=== PATIENT | female | born 1960 | race Two or more races ===

== ENCOUNTER 2024-03-14 13:04 | Outpatient (AMB) | payer OTHER, SELFPAY ==
--- NOTE | 2024-03-14 13:16 | MHC.OFFVIS ---
Vital Signs 03/14/24 13:17 Height 5 ft 3.5 in Weight 145 lb BMI 25.3 Intake Visit Reasons: DATA WAREHOUSE CONSULTANT- Right Chronic trochanteric bursitis Intake Note: eRnetta is a 63 year old female who presents today with her sister as a new patient with complaints of right hip pain. Patient reports that she has had ongoing right hip pain for about 3-4 months now. Denies injury. Her pain is felt on right sided lower back, along the lateral aspect of the hip and radiates down the leg to the foot. Her pain is felt every day. She takes Tramadol, which does help mildly with her pain. Art Psychotherapist Or Therapist Services: Art Psychotherapist Or Therapist Offered & Declined Allergies No Known Allergies Allergy (Verified 03/14/24 13:20) HPI HPI DATA WAREHOUSE CONSULTANT- Right Chronic trochanteric bursitis: Details: Renetta is a 63 year old female who presents today with her sister as a new patient with complaints of right hip pain. Patient reports that she has had ongoing right hip pain for about 3-4 months now. Denies injury. Her pain is felt on right sided lower back, along the lateral aspect of the hip and radiates down the leg to the foot. Her pain is felt every day. She takes Tramadol, which does help mildly with her pain. Physical Exam Vital Signs: BMI result Body Mass Index 25.3 Extrem Other: No groin pain with hip range of motion. Assessment & Plan Assessment & Plan (1) Low back pain potentially associated with radiculopathy: Code(s): M54.50 - Low back pain, unspecified Category: Medical Plan: This is a 63-year-old woman who is here today with her family member for translation purposes. She was sent here for hip pain but her pain is coming from her low back and not involving her hip. She has no hip symptoms and her exam is normal. Her symptoms are related to her back and potentially radicular pain. I have referred her to pain management. I discussed this with the patient and her family member. They expressed understanding. Orders: Referrals Pain Management Referral M54.50 - Low back pain, unspecified Coding Level of Care Code New Pt Level 3 (34616) Diagnoses Low back pain potentially associated with radiculopathy M54.50
[2024-03-14 13:17] VITALS: BMI 25.3
== END 2024-03-14 14:42 | disposition home or self-care (01) ==
PROVIDERS: Visit Provider Orthopaedic Surgery
DX: M54.50 Low back pain, unspecified (principal)
CPT/HCPCS: 99203

== ENCOUNTER → 2024-03-14 13:04 | Outpatient (BNVA) | payer OTHER, SELFPAY | PROVIDERS: Visit Provider Orthopaedic Surgery | DX: M54.50 Low back pain, unspecified (principal) | CPT/HCPCS: 99202 ==

== ENCOUNTER 2024-04-02 13:28 | Outpatient (REF) | payer OTHER, SELFPAY | END 2024-04-02 13:29 | disposition home or self-care (01) | LOC: HO.XRAY 13:28 | PROVIDERS: PCP Internal Medicine; Visit Provider Nurse Practitioner Family | DX: M53.3 Sacrococcygeal disorders, not elsewhere classified (principal); M47.817 Spondylosis without myelopathy or radiculopathy, lumbosacral region; M70.61 Trochanteric bursitis, right hip | CPT/HCPCS: 72110; 72202; 99202 ==

== ENCOUNTER 2024-04-02 13:28 | Outpatient (AMB) | payer OTHER, SELFPAY ==
--- NOTE | 2024-04-02 13:31 | A.OFFVIS_ITS ---
Vital Signs 04/02/24 13:35 Height 5 ft 3.5 in Weight 142 lb BMI 24.8 BP 129/60 Blood Pressure Location Lt brachial Position Sitting Pulse 78 Pulse Source Pulse Oximeter Pulse Oximetry (%) 98 Oxygen Delivery Method Room Air Intake Visit Reasons: Low back pain Intake Note: Pain today 12/19 Risk Control Manager Required: Yes Risk Control Manager Language: Turkmen Risk Control Manager Services: Risk Control Manager Offered & Declined Risk Control Manager Name: Son per patient's request Accompanied by: Son Allergies No Known Allergies Allergy (Verified 03/14/24 13:20) HPI HPI Low back pain: Details: Patient is a pleasant 63 years old Turkmen speaking female presents today for initial evaluation of low back pain with right sided radiculopathy. Medical Turkmen Risk Control Manager offered and declined by patient as she requests her son to translate during today's visit. Patient denies any past or recent trauma, injury, or falls. Patient reports gradual onset of right-sided low back pain without inciting events about 6 months ago. Back pain is localized to the right side of the lower spine with radiation into right buttock and into right lower extremity in L5-S1 distribution with associated numbness and tingling in the lateral and posterior right lower leg and heel. Pain is constant and is rated at 7/10. Pain affects her daily activities and functioning, mobility, sleep, and quality of life. Denies previous spine surgery or injections. She reports completing lumbar spine MRI at [facility] 7 years ago and was told she has spinal stenosis and arthritis. She has previously completed physical therapy and received therapeutic injection for shoulder pain with partial improvement. Patient is willing to pursue physical therapy for lower back pain as initial steps. Denies any fever or chills, unintentional weight loss, abdominal or groin pain, weakness, gait disturbance, bladder or bowel dysfunction or saddle anesthesia. Oswestry low back disability score=20 (moderate disability) Location: Lower back, radiates down into right leg Duration: 6 months Characteristics of symptom or complaint: Aching, shooting, burning, radiating, throbbing, aching Aggravating or associated factors: Walking, movement, changing positions, standing, right side sleeping Relieving factors: Naproxen, gabapentin, diclofenac gel, heat/hot shower Treatment: PT 02/2024 [facility]-8 sessions, partial improvement in shoulder [facility] Medical History (Updated 10/23/24 @ 21:32 by DAVID Blunt) Trochanteric bursitis, right hip Plantar fascial fibromatosis Other spondylosis with radiculopathy, cervical region Obstructive sleep apnea Hyperlipidemia Anemia Social History Alcohol intake: never Patient Tobacco Use Status: Never used Tobacco Review of Systems Const All systems reviewed & are unremarkable except as noted in HPI and below Physical Exam Vital Signs: Last Vital Signs Pulse 78 04/02/24 13:35 BP 129/60 04/02/24 13:35 Pulse Ox 98 04/02/24 13:35 Oxygen Delivery Method Room Air 04/02/24 13:35 BMI result Body Mass Index 24.8 General: Appears afebrile. Alert and oriented. Mood and affect appropriate. Follows and participates in conversation appropriately. Respiratory effort is unlabored. No cough. Able to transition from sit to stand unassisted. Ambulates with bilaterally normal heel strike and toe off, reports increased back pain with right heel standing. General: Yes no CVA tenderness Back/Spine/Pelvis Other: Limited lumbar ROM due to pain. Mildly antalgic gait with no limping. Lumbar extension, axial rotation and flexing forward reproduce moderate pain. Demonstrates 5/5 left and 4/5 right strength of quadriceps bilaterally as well as flexion/dorsiflexion of bilateral feet against resistance. 2+ pedal pulses bilaterally. Seated straight leg rise with dorsiflexion positive on the right in L5-S1 distribution. +2 patellar and achilles reflexes bilaterally. Facet loading test positive bilaterally. Nithya sign, Gareth?s, [place], Pelvic compression and Stinchfield tests are positive on the right. No groin pain with I/E hip rotations. Mild TTP to right GTB. Mild length discrepancy noted. Valsalva maneuver negative. Back: no CVA tenderness Cervical Spine: cervical ROM normal, No cervical muscular tenderness and No Cervical spine tenderness Thoracic/Lumbar Spine: thoracic and lumbar spine normal to inspection, No Thoracic/lumbar spine scar(s), Lasegue's sign positive on the right and localized, pain with thoraco-lumbar ROM, paraspinal muscle tenderness on the right, No thoracic spinal tenderness and lumbar spinal tenderness (L4-S1) Pelvis: buttock tenderness on the right and sciatic notch tenderness on the rig ht Sacroiliac joints: bilaterally (right>left) tender to palpation Extrem General: Yes capillary refill normal, Yes no clubbing, cyanosis or edema and Yes no calf tenderness Results Reviewed Results Reviewed: No imaging reports are available for review today. Assessment & Plan Assessment & Plan (1) Low back pain potentially associated with radiculopathy: Code(s): M54.50 - Low back pain, unspecified Category: Medical (2) Lumbosacral spondylosis: Code(s): M47.817 - Spondylosis without myelopathy or radiculopathy, lumbosacral region Category: Medical (3) Sacroiliac joint pain: Code(s): M53.3 - Sacrococcygeal disorders, not elsewhere classified Category: Medical (4) Low back pain potentially associated with radiculopathy: Code(s): M54.50 - Low back pain, unspecified Category: Medical (5) Lumbosacral spondylosis: Code(s): M47.817 - Spondylosis without myelopathy or radiculopathy, lumbosacral region Category: Medical (6) Sacroiliac joint pain: Code(s): M53.3 - Sacrococcygeal disorders, not elsewhere classified Category: Medical (7) Trochanteric bursitis, right hip: Code(s): M70.61 - Trochanteric bursitis, right hip Category: Medical Plan Obtain lumbar spine xray and MRI from [facility]. Sacroiliac joint and lumbar spine imaging to assess degree of degenerative changes, any subluxation, listhesis, compression fractures or pars defects. Discussed interventional treatments with patient and family for right-sided radicular symptoms in lower back pain. Patient would like to proceed with physical therapy. Script provided for physical therapy to [facility] where she recently completed PT for shoulder pain per the patient's request. Script provided for lidocaine patches. Continue Tylenol, NSAIDs, heat applications and activity modifications. Encourage adequate hydration and good posture. All questions and concerns have been answered and patient agreed with the treatment plan. Follow-up for x-ray results and sooner as needed. Orders: Orders XR lumbar spine 4V min 04/02/24 M47.817 - Spondylosis without myelopathy or radiculopathy, lumbosacral region, M53.3 - Sacrococcygeal disorders, not elsewhere classified, M54.50 - Low back pain, unspecified PT Evaluation and Treatment 04/02/24 M47.817 - Spondylosis without myelopathy or radiculopathy, lumbosacral region, M53.3 - Sacrococcygeal disorders, not elsewhere classified, M54.50 - Low back pain, unspecified XR sacroiliac joint min 3V 04/02/24 M47.817 - Spondylosis without myelopathy or radiculopathy, lumbosacral region, M53.3 - Sacrococcygeal disorders, not elsewhere classified, M54.50 - Low back pain, unspecified Medications: New lidocaine 5% apply to affected areas up to 12 hours daily 1 patch topical DAILY 15 days 15 ea 1RF pain M47.817 - Spondylosis without myelopathy or radiculopathy, lumbosacral region, M53.3 - Sacrococcygeal disorders, not elsewhere classified Coding Level of Care Code New Pt Level 4 (82779) Complex EM visit Add On G2211 Diagnoses Low back pain potentially associated with radiculopathy M54.50 Lumbosacral spondylosis M47.817 Sacroiliac joint pain M53.3 Trochanteric bursitis, right hip M70.61
[2024-04-02 13:35] VITALS: BP 129/60; PULSE 78; O2SAT 98; BMI 24.8
== END 2024-04-02 14:05 | disposition home or self-care (01) ==
PROVIDERS: Visit Provider Nurse Practitioner Family
DX: M54.50 Low back pain, unspecified (principal); M47.817 Spondylosis without myelopathy or radiculopathy, lumbosacral region; M53.3 Sacrococcygeal disorders, not elsewhere classified; M70.61 Trochanteric bursitis, right hip
CPT/HCPCS: 99204; G2211